=== PATIENT | female | born 1950 | race Caucasian/White ===

== ENCOUNTER 2017-12-10 20:07 | Emergency (ER) | payer MEDICARE ==
[~2017-12-10] VITALS: Ht 165.1 cm; Wt 50.8 kg
[2017-12-10] MEDS ORDERED: NKM (20:41)
[2017-12-10 20:50] VITALS: BP 112/65
[2017-12-10] MEDS ORDERED: Tetanus/Diptheria/Pertussis Vaccine 0.5ml Syr IM ONE (21:00)
[2017-12-10 21:30] VITALS: BP 112/65
[2017-12-10] MEDS ORDERED: Bacitracin Oint UD TOPIC ONE (21:30)
--- NOTE | 2017-12-10 22:06 | Emergency Room Report ---
History of Present Illness General Chief Complaint: Laceration Source: Patient Present Illness HPI 67-year-old female, no significant past medical history, presenting with laceration to finger. She was using a knife, actually cut herself. Tetanus is not up-to-date Allergies: Coded Allergies: No Known Allergies (Unverified , 12/10/17) Patient History Past Medical History: see triage record Past Surgical History: none Pertinent Family History: none Now: No Reviewed Nursing Documentation: PMH: Agreed, PSxH: Agreed Nursing Documentation-PMH Past Medical History: No Stated History Review of Systems All Other Systems: negative except mentioned in HPI Physical Exam Vital Signs Date Time Temp Pulse Resp B/P (MAP) Pulse Ox O2 Delivery O2 Flow Rate FiO2 12/10/17 20:37 98.0 69 16 108/65 98 Room Air 98.1 Sp02 EP Interpretation: reviewed, normal General Appearance: normal inspection, well appearing, no apparent distress, alert, GCS 15, non-toxic Head: normocephalic, atraumatic Eyes: bilateral eye normal inspection, bilateral eye PERRL, bilateral eye EOMI ENT: normal ENT inspection, normal pharynx, normal voice, moist mucus membranes Neck: normal inspection, full range of motion, supple Respiratory: normal inspection, lungs clear, normal breath sounds, no respiratory distress, no retraction, no wheezing, speaking full sentences, chest symmetrical Cardiovascular #1: normal inspection, regular rate, rhythm, normal capillary refill Cardiovascular #2: 2+ radial (R), 2+ radial (L) Gastrointestinal: normal inspection, non tender, soft, non-distended, no guarding Musculoskeletal: normal inspection, back normal, normal range of motion, non- tender, other - skin avultion L index finger Neurologic: normal inspection, alert, oriented x3, responsive, motor strength/ tone normal, sensory intact, normal gait, speech normal Psychiatric: normal inspection, judgement/insight normal, memory normal Skin: normal inspection, normal color, no rash, warm/dry, well hydrated, normal turgor Medical Decision Making Diagnostic Impression: Primary Impression: Avulsion of skin of finger ER Course 67-year-old female with laceration, skin avulsion Skin avulsion no laceration to repair ER course: No laceration repair required, bacitracin with sterile dressing applied. Tdap given. Disposition: Patient will be discharged home. Strict return precautions discussed with patient such as fever, chills, increasing bleeding to site, purulent drainage, rapid swelling or redness to area. Patient verbalizes understanding. Please note that this Emergency Department Report was dictated using [employer] technology software, occasionally this can lead to erroneous entry secondary to interpretation by the dictation equipment Last Vital Signs Date Time Temp Pulse Resp B/P (MAP) Pulse Ox O2 Delivery O2 Flow Rate FiO2 12/10/17 20:37 98.0 69 16 108/65 98 Room Air 98.1 Disposition: HOME, SELF-CARE Condition: Improved Patient Instructions: Laceration Care, Adult Denise Ritter M.D. Dec 10, 2017 22:06
== END 2017-12-10 21:30 | disposition home or self-care (01) ==
LOC: EMR 21:00
DX: S61.211A Laceration without foreign body of left index finger without damage to nail, initial encounter (principal); Z23 Encounter for immunization; W26.0XXA Contact with knife, initial encounter; Y92.009 Unspecified place in unspecified non-institutional (private) residence as the place of occurrence of the external cause
CPT/HCPCS: 90471; 90715; 99284